=== PATIENT | male | born 1990 | race Caucasian/White ===

== ENCOUNTER 2021-05-11 10:12 | Emergency (ER) | payer OTHER ==
[2021-05-11 13:51] LABS: HEMOGLOBIN 17.1 gm/dl (14.0-17.5); RED BLOOD COUNT 5.19 M/UL (4.20-5.50); WHITE BLOOD COUNT 10.3 K/UL (4.5-11.0)
[2021-05-11 15:15] LABS: BUN/CREATININE RATIO 12 (0-10)
== END 2021-05-11 16:50 | disposition other institution (70) ==
LOC: ER1 10:12
PROVIDERS: Physician Assistant
DX: R45.851 Suicidal ideations (principal); F20.9 Schizophrenia, unspecified; Z20.822 Contact with and (suspected) exposure to COVID-19; F17.210 Nicotine dependence, cigarettes, uncomplicated
CPT/HCPCS: 71045; 80053; 85025; 99285; U0002